=== PATIENT | female | born 1955 | race Two or more races ===

== ENCOUNTER 2025-03-27 17:33 | Inpatient (IN) | payer OTHER ==
[~2025-03-27] VITALS: Ht 177.8 cm; Wt 84.8 kg
--- NOTE | 2025-03-27 17:51 | NUR ---
PTE ALERTA Y ORIENTADA X 3 ESFERAS EN AMBULANCIA SIN FAMILIAR EN COMPANIA DE PARAMEDICOS QUIENES REFIEREN TRAER DE [facility] EN VESICULA.PTE REFIERE NAUSEAS Y LEVE MALESTAR,SE OBSERVA ICTERICA.
[2025-03-27] MEDS ORDERED: NEURONTIN300 MG (17:53)
[2025-03-27] MEDS ORDERED: COZAAR25 MG (17:53)
[2025-03-27] MEDS ORDERED: METFORMIN HCL500 M3 (17:54)
--- NOTE | 2025-03-27 17:56 | NUR ---
PTE CANALIZADA EN ANTEBRAZO LT PATENTE Y DUSTIN DE EDEMA.
[2025-03-27] MEDS ORDERED: 0.9 % SODIUM CHLORIDE 1,000 ML IV ONE (18:00)
[2025-03-27] MEDS ORDERED: ONDANSETRON HCL 2 MG/ML VIAL IV ONE (18:00)
[2025-03-27] MEDS ORDERED: FAMOTIDINE/PF 20 MG/2 ML VIAL IV ONE (18:00)
[2025-03-27] MEDS ORDERED: ENALAPRILAT DIHYDRATE 1.25 MG/ML VIAL IV ONE (18:00)
[2025-03-27] MEDS ORDERED: KETOROLAC TROMETHAMINE 30 MG VIAL IV ONE (18:15)
[2025-03-27] MEDS ORDERED: PIPERACILLIN/TAZOBACTAM SODIUM 3.375 GM VIAL IV ONE (18:15)
[2025-03-27 18:30] LABS: BASO % 0.4 % (0.1-1.2); EOS # 0.11 (0.04-0.54); EOS % 1.6 % (0.7-7.0); LYMPH # 1.78 (1.18-3.74); LYMPH % 26.2 % (19.3-53.1); MEAN PLATELET VOLUME 10.60 fl (9.4-12.4); MONO # 0.44 (0.24-0.82); MONO % 6.5 % (4.7-12.5); NEUT # 4.43 (1.56-6.13); NEUT % 65.2 % (34.0-71.1); RED CELL DISTRIBUTION WIDTH 12.4 % (11.6-14.4)
--- NOTE | 2025-03-27 18:42 | NUR ---
SE ORIENTA PTE SOBRE TX MEDICO EL CUAL REFIERE ENTENDER.SE LE EXTRAEN MUESTRAS BAJO MEDIDAS ASEPTICAS,SE RETIRA CANALIZACION DE TRASLADO YA QUE REFIERE LE DUELE Y SE CANALIZA NUEVAMENTE,SE ADMINISTRAN MEDICAMENTOS Y SE ORIENTA SONRE DIETA NPO.
[2025-03-27 18:54] LABS: INR 1.03
[2025-03-27 20:06] LABS: ALT/SGPT 303.0 U/L (12-78); AST/SGOT 166.0 U/L (15-37); BILIRUBIN TOTAL 3.35 mg/dL (0.3-1.2); BUN CREA RATIO 12.0 (7.0-25.0); CREATININE SERUM 0.86 mg/dL (0.55-1.02); GFR 65.42; GLOBULINA 3.9 G/DL (2.4-3.5); GLUCOSE FASTING 80.0 mg/dL (65-100); OSMOLALITY SERUM 279.0 MOSM/KG (275-295)
[2025-03-27] MEDS ORDERED: 0.9 % SODIUM CHLORIDE 1,000 ML IV SCH (20:30)
[2025-03-27] MEDS ORDERED: PIPERACILLIN/TAZOBACTAM SODIUM 3.375 GM in DEXTROSE 5 % IN WATER 100 ML IV SCH (20:31)
[2025-03-27 20:39] LABS: URINE APPEARANCE Clear; URINE BILIRRUBIN Negative (NEGATIVE); URINE BLOOD Trace; URINE COLOR Yellow; URINE GLUCOSE Negative (NEGATIVE); URINE LEUKOCYTE Trace; URINE NITRATE Negative; URINE PROTEIN Trace (NEGATIVE); URINE UROBILINOGEN 0.2 E.U./dl
[2025-03-27 20:45] LABS: URINE BACTERIA 15.5 uL (0.0-1933); URINE EPITHELIAL CELLS 18.7 uL (0.0-38.8); URINE WBC 25.6 uL (0.0-23.2)
[2025-03-27] MEDS ORDERED: DEXTROSE 50 % IN WATER 0.5 G/ML DISP.SYRIN IV PRN (20:45)
[2025-03-27] MEDS ORDERED: ONDANSETRON HCL 4 MG in 0.9 % SODIUM CHLORIDE 50 ML IV PRN (20:45)
[2025-03-27] MEDS ORDERED: INSULIN LISPRO 1,000 UNIT/10 ML UNITS SUBCUTANEO PRN (20:45)
[2025-03-27] MEDS ORDERED: MORPHINE SULFATE 2 MG/ML SYRINGE IV PRN (20:45)
[2025-03-27] MEDS ORDERED: LOSARTAN POTASSIUM 25 MG TABLET PO SCH (20:46)
[2025-03-27] MEDS ORDERED: ENALAPRILAT DIHYDRATE 1.25 MG/ML VIAL IV PRN (21:00)
[2025-03-27] MEDS ORDERED: FAMOTIDINE/PF 20 MG in 0.9 % SODIUM CHLORIDE 8 ML IV PUSH SCH (21:00)
[2025-03-27 21:05] LABS: URINE CAST 0.00 uL (0.0-1.40); URINE KETONE 40 (NEGATIVE); URINE RBC 1.9 uL (0.0-20.8)
[2025-03-28] MEDS ORDERED: PIPERACILLIN/TAZOBACTAM SODIUM 3.375 GM VIAL IV ONE (00:59)
[2025-03-28] MEDS ORDERED: GLUCAGON 1 MG VIAL ONE (12:44)
[2025-03-28] MEDS ORDERED: IOVERSOL 320 MG/ML - 50 ML VIAL IV ONE (12:45)
[2025-03-28] MEDS ORDERED: SUGAMMADEX SODIUM 200 MG/2 ML VIAL IV ONE ×2 (13:30→13:44)
[2025-03-28] MEDS ORDERED: DICLOFENAC SODIUM 100 MG SUPP.RECT RECTAL ONE (13:30)
[2025-03-28] MEDS ORDERED: ENALAPRILAT DIHYDRATE 1.25 MG/ML VIAL IV ONE (14:52)
[2025-03-28] MEDS ORDERED: PHENOL 177 ML BOTTLE MM SCH (17:00)
[2025-03-28 20:15] VITALS: BP 150/75; O2SAT 97
[2025-03-29 03:43] VITALS: BP 126/77; O2SAT 99
[2025-03-29] MEDS ORDERED: FAMOTIDINE/PF 20 MG/2 ML VIAL ONE (16:15)
[2025-03-29] MEDS ORDERED: PIPERACILLIN/TAZOBACTAM SODIUM 3.375 GM VIAL IV ONE (16:15)
[2025-03-29 20:25] VITALS: BP 160/83; O2SAT 96
[2025-03-30 03:17] VITALS: BP 135/78; O2SAT 98
[2025-03-30 08:32] LABS: BASO % 0.7 % (0.1-1.2); EOS # 0.33 (0.04-0.54); EOS % 5.8 % (0.7-7.0); LYMPH # 1.75 (1.18-3.74); LYMPH % 30.8 % (19.3-53.1); MEAN PLATELET VOLUME 11.30 fl (9.4-12.4); MONO # 0.49 (0.24-0.82); MONO % 8.6 % (4.7-12.5); NEUT # 3.06 (1.56-6.13); NEUT % 53.7 % (34.0-71.1); RED CELL DISTRIBUTION WIDTH 12.9 % (11.6-14.4)
[2025-03-30] MEDS ORDERED: LIDOCAINE HCL 1%/EPINEPHRINE 20ML VIAL IJ ONE (08:55)
[2025-03-30] MEDS ORDERED: BUPIVACAINE HCL/MPF 0.5% 30ML VIAL ONE (08:55)
[2025-03-30 09:13] LABS: ALT/SGPT 148.0 U/L (12-78); AST/SGOT 58.0 U/L (15-37); BILIRUBIN TOTAL 1.69 mg/dL (0.3-1.2); BUN CREA RATIO 7.0 (7.0-25.0); CREATININE SERUM 0.92 mg/dL (0.55-1.02); GFR 60.53; GLOBULINA 2.9 G/DL (2.4-3.5); GLUCOSE FASTING 84.0 mg/dL (65-100); OSMOLALITY SERUM 286.0 MOSM/KG (275-295)
[2025-03-30] MEDS ORDERED: hydrALAZINE HCL 20 MG VIAL ONE (09:13)
[2025-03-30] MEDS ORDERED: ONDANSETRON HCL 2 MG/ML VIAL ONE (10:24)
[2025-03-30] MEDS ORDERED: ONDANSETRON HCL 2 MG/ML VIAL IV ONE (10:30)
[2025-03-30] MEDS ORDERED: PIPERACILLIN/TAZOBACTAM SODIUM 3.375 GM VIAL IV ONE (15:14)
[2025-03-30] MEDS ORDERED: FAMOTIDINE/PF 20 MG/2 ML VIAL ONE ×2 (15:14→20:23)
[2025-03-30] MEDS ORDERED: MORPHINE SULFATE 4 MG/ML CARTRIDGE IV PRN (15:15)
[2025-03-30] MEDS ORDERED: SUCRALFATE 1 G TABLET PO SCH (17:00)
[2025-03-31 03:51] VITALS: BP 115/70; O2SAT 93
[2025-03-31] MEDS ORDERED: LACTOBACILLUS ACIDOPHILUS 1 CAP CAP PO SCH (09:00)
[2025-03-31 10:20] VITALS: BP 148/74; O2SAT 99
[2025-03-31] MEDS ORDERED: PIPERACILLIN/TAZOBACTAM SODIUM 3.375 GM VIAL IV ONE (15:35)
[2025-03-31] MEDS ORDERED: FAMOTIDINE/PF 20 MG/2 ML VIAL ONE (15:35)
[2025-03-31 19:16] VITALS: BP 159/82; O2SAT 95
[2025-04-01 02:39] VITALS: BP 172/82; O2SAT 95
[2025-04-01 05:42] LABS: BASO % 0.3 % (0.1-1.2); EOS # 0.16 (0.04-0.54); EOS % 1.8 % (0.7-7.0); LYMPH # 1.64 (1.18-3.74); LYMPH % 18.7 % (19.3-53.1); MEAN PLATELET VOLUME 11.40 fl (9.4-12.4); MONO # 0.64 (0.24-0.82); MONO % 7.3 % (4.7-12.5); NEUT # 6.29 (1.56-6.13); NEUT % 71.7 % (34.0-71.1); RED CELL DISTRIBUTION WIDTH 12.4 % (11.6-14.4)
[2025-04-01 06:43] LABS: ALT/SGPT 109.0 U/L (12-78); AST/SGOT 41.0 U/L (15-37); BILIRUBIN TOTAL 1.54 mg/dL (0.3-1.2); BUN CREA RATIO 7.0 (7.0-25.0); CREATININE SERUM 0.81 mg/dL (0.55-1.02); GFR 70.11; GLOBULINA 3.3 G/DL (2.4-3.5); GLUCOSE FASTING 104.0 mg/dL (65-100); OSMOLALITY SERUM 285.0 MOSM/KG (275-295)
[2025-04-01 09:14] VITALS: BP 166/74; O2SAT 96
== END 2025-04-01 13:42 | disposition home or self-care (01) | DRG 418 ==
LOC: ER 17:33 → MEDI 20:36 → SEC-K 20:36 → MEDJ 03-28 00:26 → SEC-K 03-28 01:32 → MEDI 03-28 01:39
PROVIDERS: General Practice; Internal Medicine; Surgery; ADMIT Internal Medicine; ATTEND Internal Medicine
PROC: BF37ZZZ Magnetic Resonance Imaging (MRI) of Pancreas (ICD-10-PCS; 2025-03-27)
PROC: 0F798ZZ Dilation of Common Bile Duct, Via Natural or Artificial Opening Endoscopic (ICD-10-PCS; 2025-03-28)
PROC: 0FC98ZZ Extirpation of Matter from Common Bile Duct, Via Natural or Artificial Opening Endoscopic (ICD-10-PCS; 2025-03-28)
PROC: BF13YZZ Fluoroscopy of Gallbladder and Bile Ducts using Other Contrast (ICD-10-PCS; 2025-03-30)
PROC: 0FT44ZZ Resection of Gallbladder, Percutaneous Endoscopic Approach (ICD-10-PCS; principal; 2025-03-30 09:00)
DX: K80.10 Calculus of gallbladder with chronic cholecystitis without obstruction (principal); R17 Unspecified jaundice; K80.50 Calculus of bile duct without cholangitis or cholecystitis without obstruction; R74.8 Abnormal levels of other serum enzymes